=== PATIENT | female | born 1945 ===

== ENCOUNTER 2018-03-01 08:30 | Inpatient (IN) | payer OTHER ==
[~2018-03-01] VITALS: Ht 149.9 cm; Wt 66.7 kg
[~2018-03-01 08:30] MED LIST: COZAAR50 MG; SYNTHROID88 MCG
[2018-03-01] MEDS ORDERED: NEURONTIN300 MG PO (12:43)
[2018-03-01] MEDS ORDERED: LOSARTAN-HCTZ1 EAC2 PO (12:44)
[2018-03-01] MEDS ORDERED: PROTONIX40 MG PO (12:44)
[2018-03-01] MEDS ORDERED: ATORVASTATIN CA20 MG PO (12:44)
[2018-03-11] MEDS ORDERED: DUI500 PO (08:18)
[2018-03-11] MEDS ORDERED: PERCOCET 5-3251 EACH PO (08:18)
[2018-03-11] MEDS ORDERED: ELIQUIS2.5 MG PO (08:18)
== END 2018-03-11 13:59 | DRG 470 ==
LOC: O/R 03-08 06:49 → SURH 03-08 06:49
PROVIDERS: ADMIT Orthopaedic Surgery
PROC: 0MN Bursae and Ligaments, Release (ICD-10-PCS; 2018-03-08)
PROC: 0SRC0J9 Replacement of Right Knee Joint with Synthetic Substitute, Cemented, Open Approach (ICD-10-PCS; principal; 2018-03-08 07:00)
DX: M17.11 Unilateral primary osteoarthritis, right knee (principal); D62 Acute posthemorrhagic anemia; I10 Essential (primary) hypertension; E07.89 Other specified disorders of thyroid; M81.0 Age-related osteoporosis without current pathological fracture; E03.8 Other specified hypothyroidism

== ENCOUNTER 2019-03-16 08:29 | Outpatient (CLI) | payer OTHER ==
[~2019-03-16 08:29] MED LIST changes: +ATORVASTATIN CA20 MG PO; +DUI500 PO; +ELIQUIS2.5 MG PO; +LOSARTAN-HCTZ1 EAC2 PO; +NEURONTIN300 MG PO; +PERCOCET 5-3251 EACH PO; +PROTONIX40 MG PO
== END 2019-03-16 08:45 | disposition home or self-care (01) ==
LOC: NUCLEAR 08:29
DX: I20.1 Angina pectoris with documented spasm (principal)
CPT/HCPCS: 78452; 93017; A9500; J0153